=== PATIENT | male | born 1995 | race Caucasian/White ===

== ENCOUNTER 2024-05-28 15:13 | Emergency (ER) | payer MEDICAID, SELFPAY ==
[2024-05-28 15:28] VITALS: BMI 29.0
--- NOTE | 2024-05-28 15:42 | EDNOTE_ITS ---
ED Medical Clearance RME/HPI General Chief complaint: Medical Clearance Stated complaint: MEDICAL CLEARANCE Time Seen by Provider: 05/28/24 15:42 Source: patient Arrival date/time: 05/28/24 15:13 28-year-old male with no known medical history presents to the emergency room with a chief complaint of a medical clearance to go to prison. Patient needs a medical clearance due to high blood pressure. Patient denies any complaints Mode of arrival: ambulatory Limitations: no limitations Related Information Allergies Allergy/AdvReac Type Severity Reaction Status Date / Time No Known Allergies Allergy Verified 05/28/24 15:30 Review of Systems Review of Systems Systems Reviewed: All systems reviewed, normal except as documented Constitutional Constitutional: Reports system reviewed and no additional complaints, except as documented, Denies fatigue, Denies fever(s), Denies headache(s) and Denies weakness Eyes Eyes: Reports system reviewed and no additional complaints, except as documented, Denies blurry vision and Denies change in vision ENT Ears, Nose, Mouth, and Throat: Reports system reviewed and no additional complaints, except as documented, Denies otalgia, Denies headache(s), Denies nasal congestion, Denies throat swelling and Denies vertigo Cardiovascular Cardiovascular: Reports system reviewed and no additional complaints, except as documented, Denies chest pain, Denies dyspnea and Denies dyspnea on exertion Respiratory Respiratory: Reports system reviewed and no additional complaints, except as documented, Denies chest congestion, Denies cough, Denies dyspnea, Denies dyspnea on exertion and Denies wheezing Gastrointestinal Gastrointestinal: Reports system reviewed and no additional complaints, except as documented, Denies abdominal pain, Denies cramping, Denies nausea and Denies vomiting Genitourinary Genitourinary: Reports system reviewed and no additional complaints, except as documented, Denies dysuria and Denies hematuria Musculoskeletal Musculoskeletal: Reports system reviewed and no additional complaints, except as documented and Denies back pain Integumentary/Breasts Skin/Breast: Reports system reviewed and no additional complaints, except as documented and Denies wounds Neurologic Neurologic: Reports system reviewed and no additional complaints, except as documented, Denies confusion, Denies headache(s), Denies lack of coordination, Denies vertigo and Denies weakness Psychiatric Psychiatric: Reports system reviewed and no additional complaints, except as documented, Denies anxiety, Denies confusion, Denies depression, Denies paranoia, Denies suicidal ideation and Denies tactile hallucinations Endocrine Endocrine: Reports system reviewed and no additional complaints, except as documented and Denies fatigue Hematologic/Lymphatic Hematologic/Lymphatic: Reports system reviewed and no additional complaints, except as documented and Denies lymphadenopathy Allergic/Immunologic Allergic/Immunologic: Reports system reviewed and no additional complaints, ex cept as documented, Denies throat swelling, Denies urticaria and Denies wheezing Past Medical History Social History SMOKING STATUS: Former smoker ED Exam General Limitations: Present no limitations General appearance: Present alert and in no apparent distress Head Head exam: Present atraumatic Eye Eye exam: Present normal appearance, PERRL and EOMI ENT ENT exam: Present normal exam, normal oropharynx and mucous membranes moist Neck Neck exam: Present normal inspection, full ROM and trachea midline Chest Chest inspection: Present normal inspection and symmetric chest wall rise Respiratory Respiratory exam: Present normal lung sounds bilaterally Cardiovascular Cardiovascular exam: Present regular rate, normal rhythm and normal heart sounds Abdominal Exam Abdominal exam: Present soft and normal bowel sounds Extremities Exam Extremities exam: Present normal inspection and full ROM Back Exam Back exam: Present normal inspection and full ROM Neurological Exam Neurological exam: Present alert, oriented X3 and CN II-XII intact Psychiatric Psychiatric exam: Present normal affect and normal mood Skin Skin exam: Present warm, dry, intact and normal color Course Quality Measures none Orders Category Date Time Status EKG (ED ONLY) *Do not use* NOW Care 05/28/24 15:42 Completed EKG (ED Only) Stat Exams 05/28/24 15:42 Draft cloNIDine HCL [Catapres] Med 05/28/24 16:18 Discontinued 0.1 mg PO X1 ONE Vital Signs Vital signs: Vital Signs Temperature 99.4 F 05/28/24 15:56 Pulse Rate 103 H 05/28/24 15:56 Respiratory Rate 18 05/28/24 15:56 Blood Pressure 168/79 H 05/28/24 15:56 Pulse Oximetry (%) 98 05/28/24 15:56 Oxygen Delivery Method Room Air 05/28/24 15:56 O2 saturation 98% within normal limits Procedures -ED EKG Interpretation #1: Date of EK05/29/24 Rate: 94 Interpretation: Reviewed by me EKG Impression: Normal sinus rhythm Additional EKG comment: EKG shows normal sinus rhythm at [address] deviation Medical Clearance MDM Narrative MDM Narrative:: 28-year-old male with no known medical history presents to the emergency room with a chief complaint of a medical clearance to go to prison. Patient needs a medical clearance due to high blood pressure. Patient denies any complaints Patient is hemodynamically stable and in no apparent distress Physical examination shows clear bilateral lung sounds. The patient denies any chest pain palpitations abdominal pain or URI signs or symptoms. Patient denies having hypertension. An EKG was completed and shows normal sinus rhythm at [address] deviation. Clonidine was given and the patient was reevaluated in 1 hour with significant improvement to his symptoms patient was medically cleared to return to prison Patient data External records reviewed:: [facility] previous records Clinical information provided by:: patient Social determinants that could affect healthcare access:: none Patient has the following chronic illnesses:: No chronic illness How is presenting disease/condition affected by chronic disease/condition?: no chronic disease Evaluation data The following diagnostics were reviewed and interpreted by me:: lab results and radiology exam(s) Lab and/or radiology exams considered but not ordered:: Labs and radiology exams considered and ordered Interpretation Summary: N/A Medications / Prescriptions Medications or Prescriptions considered but not ordered:: Medication given Medication administrations:: Medication Administration History Discontinued Medications Clonidine (Clonidine Hcl 0.1 Mg Tablet) 0.1 mg PO X1 ONE Stop: 05/28/24 16:19 Last Admin: 05/28/24 16:39 Dose: 0.1 mg Documented By: Medication given Consultations Consultation(s) initiated? (list below): No Diagnosis Medical Clearance Differential Diagnosis: other (Asymptomatic hypertension urgency/hypertensive emergency) Most likely diagnosis given after review of the tests above:: Asymptomatic hypertension urgency Admission Indicated Admission indicated?: not indicated Admission Request Was there a request for admission?: No Disposition Plan Disposition Plan: Discharge Discharge Attestation Discharge Attestation: The patient and all family members were given an opportunity to ask questions and understood the discharge instructions. Discharge instructions specifically effects, indications for sooner follow up or return to the emergency department, and the expected course of current diagnosis. Patient condition: Stable Discharge Plan Plan Patient Disposition: HOME (Self Care) Disposition Comment: Stable Prescriptions/Referrals Referrals: No Primary/Family,Physician [Primary Care Provider] - In 1 week Problem List Clinical Impression: Asymptomatic hypertensive urgency Patient/Caregiver Discharge Instructions Additional Instructions: Please follow-up with your primary care provider in the next 24 to 48 hours. At this time you are medically cleared. For any evidence of worsening signs or symptoms return to the emergency room immediately Print Language: Kazakh Stand Alone Forms: Josefa Award Info., Patient Portal Info Letter PA/CUSTOMER ACCOUNT TECHNICIAN Supervising Physician PA/CUSTOMER ACCOUNT TECHNICIAN Supervising Physician: Dr. Graf
--- NOTE | 2024-05-28 15:42 | EKG_ITS ---
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
[2024-05-28 15:56] VITALS: BP 168/79; PULSE 103; RESP 18; TEMP 37.4; O2SAT 98
[2024-05-28 16:39] VITALS: BP 168/79; PULSE 103
[2024-05-28] MEDS: cloNIDine HCL 0.1 MG TABLET PO (16:39)
[2024-05-28 17:35] VITALS: BP 142/82; PULSE 97; RESP 18; TEMP 37.2; O2SAT 98
== END 2024-05-28 17:50 | disposition home or self-care (01) ==
PROVIDERS: Emergency Provider Emergency Medicine
DX: I16.0 Hypertensive urgency (principal)
CPT/HCPCS: 93005; 99283; A9270